=== PATIENT | male | born 1980 | race Hispanic/Latino ===

== ENCOUNTER 2017-06-24 20:18 | Emergency (ER) | payer OTHER ==
--- NOTE | 2017-06-24 20:35 | ED.PDOC ---
History of Present Illness - General Chief Complaint: Headache Stated Complaint: headache Time Seen by Provider: 06/24/17 20:28 Source: patient Exam Limitations: no limitations - History of Present Illness Initial Comments: TERRAZAS X 1-2 WKS. HAS PCP BUT HAS NOT SEEN YET. DENIES FEVERS OR MS CHANGES. POS H/O MIGRAINES FOR WHICH JUST TAKES EXCEDRINE. PT STATES BP BEEN ELEVATED AROUND 150/100, COINCIDING WITH THE TERRAZAS'S. FEELS PRESSURE IN BL TEMPLES AND BEHIND EYES. NOT UNLATERAL. Timing/Duration: 1 week Quality: throbbing, other - WAXING AND WANING Recent Head Trauma: no recent headache/trauma Improving Factors: nothing Worsening Factors: nothing Associated Symptoms: flushing Allergies/Adverse Reactions: Allergies Pneumococcal Vaccine Allergy (Intermediate, Verified 04/06/16 10:58) Home Medications: Ambulatory Orders Cetirizine HCl [ZyrTEC] 10 mg PO DAILY 04/06/16 Esomeprazole Magnesium [Nexium] 20 mg PO DAILY 04/06/16 Review of Systems - Review of Systems Constitutional: Denies: chills, diaphoresis, fever EENTM: Denies: ear pain, nose congestion Respiratory: Denies: cough, short of breath Cardiology: Denies: chest pain, palpitations Gastrointestinal/Abdominal: States: no symptoms reported Genitourinary: States: no symptoms reported Musculoskeletal: States: no symptoms reported Skin: States: no symptoms reported Neurological: States: headache. Denies: paresthesia, seizure, tingling, weakness Endocrine: States: no symptoms reported Hematologic/Lymphatic: States: no symptoms reported All other Systems: Reviewed and Negative Past Medical History (General) - Patient Medical History Hx Seizures: No Hx Stroke: No Hx Dementia: No Hx Asthma: Yes Hx of COPD: No Hx Cardiac Disorders: No Hx Congestive Heart Failure: No Hx Pacemaker: No Hx Hypertension: No Hx Thyroid Disease: No Hx Diabetes: No Hx Gastroesophageal Reflux: Yes Hx Renal Disease: No Hx Cancer: No Hx of HIV: No Hx Hepatitis C: No Hx MRSA: No - Vaccination History Hx Tetanus, Diphtheria Vaccination: Yes Hx Influenza Vaccination: No Hx Pneumococcal Vaccination: No - Social History Hx Tobacco Use: No - Quit 2 yr ago Hx Chewing Tobacco Use: No Hx Alcohol Use: No Hx Substance Use: No Hx Substance Use Treatment: No Hx Depression: No Hx Physical Abuse: No Hx Emotional Abuse: No Hx Suspected Abuse: No - Female History Patient : No Family Medical History - Family History Mother Family History: Unknown Father Hx Family Hypertension: Yes Hx Family Stroke: Yes Hx Family Diabetes: Yes Physical Exam - Physical Exam General Appearance: Alert, No apparent distress, Well Groomed, Well Nourished Eyes, Ears, Nose, Throat Exam: PERRL/EOMI, normal ENT inspection, TMs normal, pharynx normal Neck: non-tender, full range of motion, supple, normal inspection, trachea midline, other - NEG KERNIG'S AND BRUDZINSKI'S. Cardiovascular/Chest: normal peripheral pulses, regular rate, rhythm, no edema, no gallop, no JVD, no murmur Respiratory: chest non-tender, lungs clear, normal breath sounds Gastrointestinal/Abdominal: non tender, soft Back Exam: normal inspection, no CVA tenderness, no vertebral tenderness, other - NECK NTTP. NECK PAINLESS FROM. 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 Coordination/Gait: normal finger to nose, normal gait Motor/Sensory: no motor deficit, no sensory deficit, no pronator drift Lower Extremity DTR: left, patellar: 3+, right, patellar: 3+ Skin Exam: warm/dry, normal color Lymphatic: no adenopathy Progress - Results/Orders Results/Orders: MILD HTN (150'S / 100'S) X 2 WKS RESULTING IN HYPERTENSIVE HEADACHE. NO FEVERS OR AMS AND NO NUCHAL REGIDITY, THUS I AM NOT CONCERNED ABOUT MENINGITIS. TREATING HTN WITH CLONIDINE AND TERRAZAS WITH IMITREX AND NORFLEX. CONSELED FOR NEED TO F/ W/ PCP, DR. ROLDAN, TO FOLLOW BP AND SEE IF NEEDS TO START ON A CHRONIC ANTIHYPERTENSIVE. BP NOW 125/85 AFTER CLONIDINE. PT STATES HIS TERRAZAS IS ALMOST RESOLVED. SAFE TO DC TO HOME AND PT STATES HE WILL CALL PCP IN THE AM. Departure - Departure Clinical Impression: Hypertension, Headache Disposition: Discharge to Home or Self Care Condition: Good Departure Forms: ED Discharge - Pt. Copy, Patient Portal Self Enrollment Instructions: DI for Headache Diet: resume usual diet Activity: increase activity as tolerated Referrals: Semaj Roldan MD [Primary Care Provider] - 1-2 Days Home Medications: Ambulatory Orders Cetirizine HCl [ZyrTEC] 10 mg PO DAILY 04/06/16 Esomeprazole Magnesium [Nexium] 20 mg PO DAILY 04/06/16
[2017-06-24 20:44] VITALS: O2SAT 98
[2017-06-24] MEDS ORDERED: cloNIDine HCL 0.1 MG TAB PO ONE (20:47)
[2017-06-24] MEDS ORDERED: ORPHENADRINE CITRATE 30 MG/ML AMP IM ONE (20:48)
[2017-06-24] MEDS ORDERED: SUMAtriptan SUCCINATE 50 MG TAB PO ONE (20:50)
[2017-06-24] MEDS ORDERED: SUMAtriptan SUCCINATE 50 MG TAB ONE (20:51)
[2017-06-24 21:38] VITALS: BP 132/81; TEMP 97.1
== END 2017-06-24 21:38 | disposition home or self-care (01) ==
LOC: ER 20:18
DX: R51 Headache (principal); I10 Essential (primary) hypertension; K21.9 Gastro-esophageal reflux disease without esophagitis; Z87.891 Personal history of nicotine dependence; Z88.7 Allergy status to serum and vaccine; Z79.899 Other long term (current) drug therapy

== ENCOUNTER → 2017-06-26 | Outpatient (CLI) | payer OTHER | END | disposition home or self-care (01) | LOC: LAB.O 08:31 | DX: I10 Essential (primary) hypertension (principal) ==